=== PATIENT | female | born 1965 | race Two or more races ===

== ENCOUNTER 2017-11-01 12:24 | Emergency (ER) | payer OTHER ==
[~2017-11-01] VITALS: Ht 165.1 cm; Wt 68.0 kg
[2017-11-01] MEDS ORDERED: LOSARTAN POTASS25 MG (13:09)
[2017-11-01] MEDS ORDERED: SYNTHROID50 MCG (13:09)
== END 2017-11-01 21:46 | disposition home or self-care (01) ==
LOC: ER 12:24
DX: K52.89 Other specified noninfective gastroenteritis and colitis (principal); K29.70 Gastritis, unspecified, without bleeding

== ENCOUNTER 2023-03-15 14:56 | Emergency (ER) | payer OTHER ==
[~2023-03-15] VITALS: Ht 165.1 cm; Wt 68.0 kg
[~2023-03-15 14:56] MED LIST: LOSARTAN POTASS25 MG; SYNTHROID50 MCG
[2023-03-15] MEDS ORDERED: VALTREX1000 MG PO (16:53)
== END 2023-03-15 17:05 | disposition home or self-care (01) ==
LOC: ER 14:56
DX: B02.8 Zoster with other complications (principal); Z88.2 Allergy status to sulfonamides

== ENCOUNTER 2025-10-02 07:58 | Emergency (ER) | payer OTHER ==
[~2025-10-02] VITALS: Ht 165.1 cm; Wt 70.3 kg
[~2025-10-02 07:58] MED LIST changes: +VALTREX1000 MG PO
[2025-10-02] MEDS ORDERED: METHYLPREDNISOLONE SOD SUCC 125 MG VIAL IV ONE (09:30)
[2025-10-02] MEDS ORDERED: DIPHENHYDRAMINE HCL 50 MG/ML VIAL 1ML IV ONE (09:30)
[2025-10-02] MEDS ORDERED: FAMOTIDINE/PF 20 MG/2 ML VIAL IV ONE (09:30)
[2025-10-02] MEDS ORDERED: DIPHENHYDRAMINE HCL 50 MG/ML VIAL 1ML ONE (10:02)
[2025-10-02] MEDS ORDERED: FAMOTIDINE/PF 20 MG/2 ML VIAL ONE (10:02)
[2025-10-02] MEDS ORDERED: METHYLPREDNISOLONE SOD SUCC 125 MG VIAL ONE (10:02)
[2025-10-02] MEDS ORDERED: BENADRYL ALLERG50 MG PO (10:52)
[2025-10-02] MEDS ORDERED: ZYRTEC10 M3 PO (10:52)
== END 2025-10-02 11:18 | disposition home or self-care (01) ==
LOC: ER 07:59
DX: T78.49XA Other allergy, initial encounter (principal); L50.0 Allergic urticaria; X58.XXXA Exposure to other specified factors, initial encounter; Z88.8 Allergy status to other drugs, medicaments and biological substances; I10 Essential (primary) hypertension